=== PATIENT | female | born 1980 | race Caucasian/White ===

== ENCOUNTER 2016-11-17 07:30 | Emergency (ER) | payer OTHER ==
[2016-11-17 07:44] VITALS: BP 128/60
--- NOTE | 2016-11-17 10:08 | UC ---
Yousuf Grover Matthew, [facility] on 11/17/16 at 0930 . Back Pain HPI - HPI Summary HPI Summary: Nurse's Note: Left low back pain which began . Pain radiates down the posterior left knee which is constant. Patient aggravated by position change and standing. Denies burning on urination. Reports abdominal crmaping yesterday , followed by diarrhea. MD Note: Vital signs stable, afebrile, pulse ox 96%, 10/10 pain in the left lower back, occasional alcohol, non-smoker, fibromyalgia, chronic pain syndrome , hysterectomy, breast reduction, appendectomy. The patient is already on opioids last taken 11/10. UA shows negative for WBCs and nitrites. In Room Note: A 36 y/o female presents to [facility] with constant left lower back pain for the past 3 days. The pain is rated 10/10 in severity. The pain is worse with movement and lifting of the left leg. The pain is unaffected by twisting. Associated symptoms include an inability to sleep, fatigue, and peripheral edema. Seen by her PCP and prescribed hydrocodone for migraines. She' s also c/o of abdominal pain w/ diarrhea yesterday. FHx of diabetes and CAD - History of Current Complaint Chief Complaint: UCBackPain Stated Complaint: LT KIDNEY AREA PAIN Time Seen by Provider: 11/17/16 07:51 Hx Obtained From: Patient Hx Last Menstrual Period: 2011 Onset/Duration: Lasting Days, Still Present Timing: Constant Severity Initially: Moderate Severity Currently: Moderate Pain Intensity: 10 Pain Scale Used: 0-10 Numeric Back Pain: Is Discrete @ - left lower back Associated Signs And Symptoms: Positive: Other - Fatigue. Negative: Weakness, Numbness, Tingling - Allergies/Home Medications Allergies/Adverse Reactions: Allergies Allergy/AdvReac Type Severity Reaction Status Date / Time Latex Allergy Hives Verified 08/13/16 13:38 Nickel Allergy Rash Verified 08/13/16 13:38 Pineapple Allergy Unknown Verified 08/13/16 13:38 Reaction Details Tramadol Allergy Hives Verified 08/13/16 13:38 BEE STINGS Allergy Severe Anaphylatic Uncoded 08/13/16 13:38 Shock walnuts Allergy Unknown Uncoded 08/13/16 13:38 Reaction Details PMH/Surg Hx/FS Hx/Imm Hx Endocrine History Of: Denies: Diabetes, Thyroid Disease Cardiovascular History Of: Reports: Cardiac Disorders - rapid heart rate- no meds Denies: Hypertension, Pacemaker/ICD, Congestive Heart Failure Respiratory History Of: Denies: COPD, Asthma GI/ History Of: Reports: Gall Bladder Disease - acute symptoms sono reveals "sludge" Denies: Ulcer, Renal Disease Neurological History Of: Reports: Migraine - frequent Psychological History Of: Reports: Anxiety, Depression - Surgical History Surgical History: Yes Surgery Procedure, Year, and Place: hysterectomy, breast reduction, appendectomy - Family History Known Family History: Positive: Cardiac Disease, Hypertension - Social History Alcohol Use: Occasionally Substance Use Type: None Substance Use Comment - Amount & Last Used: hydrocodone for migraines 2 weeks ago. naproxen for fibromyalgia on sat nig Smoking Status (MU): Never Smoked Tobacco Have You Smoked in the Last Year: No - Immunization History Most Recent Influenza Vaccination: 06/2016 Review of Systems Constitutional: Fatigue, Other - Difficulty sleeping Skin: Negative Eyes: Negative ENT: Negative Respiratory: Negative Cardiovascular: Negative Gastrointestinal: Abdominal Pain, Diarrhea Motor: Negative Neurovascular: Negative Musculoskeletal: Edema - peripheral edema, Myalgia - left lower back pain Psychological: Negative All Other Systems Reviewed And Are Negative: Yes Physical Exam Triage Information Reviewed: Yes Appearance: No Pain Distress, Well-Nourished, Ill-Appearing Vital Signs: Initial Vital Signs Temp 97.5 F 11/17/16 07:37 Pulse 84 11/17/16 07:37 Resp 16 11/17/16 07:37 BP 128/60 11/17/16 07:37 Pulse Ox 96 11/17/16 07:37 Vital Signs Reviewed: Yes Eye Exam: Normal Eyes: Positive: Conjunctiva Clear ENT: Positive: Hearing grossly normal. Negative: Muffled/hoarse voice Neck: Positive: Supple, Nontender Respiratory: Positive: Chest non-tender, Lungs clear, Normal breath sounds, No respiratory distress Cardiovascular: Positive: RRR, No Murmur Abdomen Description: Positive: Nontender, Soft Bowel Sounds: Positive: Present Musculoskeletal: Positive: Other: - TENDERNESS LEFT LOWER BACK WITH PALPATION AND BENDING Neurological Exam: Normal Neurological: Positive: Alert Psychological Exam: Normal Psychological: Positive: Age Appropriate Behavior Skin Exam: Normal Skin: Negative: rashes Back Pain Course/Dx - Differential Dx/Diagnosis Differential Diagnosis/HQI/PQRI: Other - ruptured disc vs lower back strain Provider Diagnoses: Lumbar sprain Discharge - Discharge Plan Condition: Stable Disposition: HOME Patient Education Materials: Low Back Strain (ED) Referrals: Mary Gonzalez MD [Primary Care Provider] - Additional Instructions: WE DISCUSSED: You have strained the area of your left low back. I don't think this has to do with your urine or that you have pinched a nerve. Rest, warm moist heat in the morning; ice to area after standing. You can also alternate ice, heat, ice. Follow up at any time for increased pain or disability. The documentation as recorded by the Yousuf melo Matthew accurately reflects the service I personally performed and the decisions made by me, James Morel MD.
== END 2016-11-17 09:35 | disposition home or self-care (01) ==
LOC: UCEAST 07:30
DX: S39.012A Strain of muscle, fascia and tendon of lower back, initial encounter (principal); X58.XXXA Exposure to other specified factors, initial encounter
CPT/HCPCS: 81002; 99211; G0463

== ENCOUNTER 2017-02-27 08:44 | Emergency (ER) | payer SELFPAY ==
[2017-02-27 09:10] VITALS: BP 112/72
--- NOTE | 2017-02-27 09:51 | UC ---
Back Pain HPI - HPI Summary HPI Summary: Muscle strain to thoracic back after stretching and twisting quickly yesterday during a transfer with a resident - History of Current Complaint Chief Complaint: UCBackPain Stated Complaint: BACK INJURY Time Seen by Provider: 02/27/17 09:49 Hx Obtained From: Patient Hx Last Menstrual Period: 2011 ?: No Onset/Duration: Sudden Onset, Lasting Days - 1, Still Present Timing: Constant Severity Initially: Moderate Severity Currently: Moderate Pain Intensity: 7 Pain Scale Used: 0-10 Numeric Back Pain: Is Discrete @ Character: Aching, Spasmodic, Stiffness Aggravating: Movement, Lifting Alleviating: Rest, Position Associated Signs And Symptoms: Positive: Negative Related History: Occupational Injury - Allergies/Home Medications Allergies/Adverse Reactions: Allergies Allergy/AdvReac Type Severity Reaction Status Date / Time Latex Allergy Hives Verified 01/10/17 21:57 Nickel Allergy Rash Verified 01/10/17 21:57 Pineapple Allergy Hives Verified 02/27/17 08:52 Tramadol Allergy Hives Verified 01/10/17 21:57 BEE STINGS Allergy Severe Anaphylatic Uncoded 01/10/17 21:57 Shock walnuts Allergy Hives Uncoded 02/27/17 08:52 PMH/Surg Hx/FS Hx/Imm Hx Previously Healthy: No Neurological History: Migraine - Surgical History Surgical History: Yes Surgery Procedure, Year, and Place: hysterectomy, breast reduction, appendectomy - Family History Known Family History: Positive: Cardiac Disease, Hypertension Family History: MOM HAS DVT LIKELY DUE TO HOSPITALIZATION - Social History Occupation: Employed Full-time Lives: With Family Alcohol Use: Occasionally Substance Use Type: None Substance Use Comment - Amount & Last Used: hydrocodone for migraines 2 weeks ago. naproxen for fibromyalgia on sat nig Smoking Status (MU): Never Smoked Tobacco Have You Smoked in the Last Year: No - Immunization History Most Recent Influenza Vaccination: 06/2016 Review of Systems Constitutional: Negative Skin: Negative Eyes: Negative ENT: Negative Respiratory: Negative Cardiovascular: Negative Gastrointestinal: Negative Genitourinary: Negative Motor: Negative Neurovascular: Negative Musculoskeletal: Negative, Myalgia - thorasic back pain Neurological: Negative Psychological: Negative All Other Systems Reviewed And Are Negative: Yes Physical Exam Triage Information Reviewed: Yes Appearance: Well-Appearing, Pain Distress - mild, Obese Vital Signs: Initial Vital Signs Temp 98.1 F 02/27/17 08:57 Pulse 76 02/27/17 08:57 Resp 18 02/27/17 08:57 BP 112/72 02/27/17 08:57 Pulse Ox 97 02/27/17 08:57 Vital Signs Reviewed: Yes Eye Exam: Normal Eyes: Positive: Conjunctiva Clear ENT Exam: Normal ENT: Positive: Normal ENT inspection, Hearing grossly normal, Pharynx normal, TMs normal. Negative: Nasal congestion, Nasal drainage, Trismus, Muffled/ hoarse voice Dental Exam: Normal Neck exam: Normal Neck: Positive: Supple, Nontender, No Lymphadenopathy Respiratory Exam: Normal Respiratory: Positive: Chest non-tender, Lungs clear, Normal breath sounds, No respiratory distress, No accessory muscle use Cardiovascular Exam: Normal Cardiovascular: Positive: RRR, No Murmur, Pulses Normal, Brisk Capillary Refill Musculoskeletal Exam: Normal Musculoskeletal: Positive: Strength Intact, ROM Intact, No Edema Neurological Exam: Normal Neurological: Positive: Alert, Muscle Tone Normal Psychological Exam: Normal Skin Exam: Normal Back Pain Course/Dx - Course Course Of Treatment: heat, nsaids, flexeril, exercise, follow with PT and PCP - Differential Dx/Diagnosis Differential Diagnosis/HQI/PQRI: Fracture, Osteoporosis, Strain, Sprain Provider Diagnoses: MUscle strain thorasic spine Discharge - Discharge Plan Condition: Stable Disposition: HOME Prescriptions: Cyclobenzaprine TAB* [Flexeril 10 MG TAB*] 10 mg PO TID PRN #15 tab PRN Reason: Muscle spasm Naproxen Sodium [Naproxen Sodium 500 MG TAB] 500 mg PO BID PRN #30 tab PRN Reason: Pain Patient Education Materials: Muscle Spasm (ED), Core Strengthening Exercises ( GEN), Thoracic Back Strain (ED) Forms: *Work Release Referrals: Mary Gonzalez MD [Primary Care Provider] - 5 Days
== END 2017-02-27 10:15 | disposition home or self-care (01) ==
LOC: UCEAST 08:44
DX: S23.3XXA Sprain of ligaments of thoracic spine, initial encounter (principal); X50.1XXA Overexertion from prolonged static or awkward postures, initial encounter; Y93.F2 Activity, caregiving, lifting; Y92.239 Unspecified place in hospital as the place of occurrence of the external cause; Y99.0 Civilian activity done for income or pay; M79.7 Fibromyalgia
CPT/HCPCS: 99212; G0463

== ENCOUNTER 2017-03-10 08:52 | Emergency (ER) | payer OTHER ==
[2017-03-10 10:01] VITALS: BP 124/72
--- NOTE | 2017-03-10 10:32 | UC ---
Skin Complaint HPI - HPI Summary HPI Summary: Cold sx & red circular area that is starting to blister to left leg x1 week. Went to hike last weekend and not sure if exposed to tick. has had shingles ion the past and may feel a little like that. [ End ] - History of Current Complaint Chief Complaint: UCSkin Time Seen by Provider: 03/10/17 09:39 Stated Complaint: SKIN COMPLAINT Hx Obtained From: Patient Hx Last Menstrual Period: 2011 Onset/Duration: Gradual Onset Timing: Constant Onset Severity: Moderate Aggravating: Nothing Alleviating: Nothing Associated Signs & Symptoms: Negative: Red Streaks Related History: Insect Bite/Sting - ? - Allergy/Home Medications Allergies/Adverse Reactions: Allergies Allergy/AdvReac Type Severity Reaction Status Date / Time Latex Allergy Hives Verified 03/10/17 09:47 Nickel Allergy Rash Verified 03/10/17 09:47 Pineapple Allergy Hives Verified 03/10/17 09:47 Tramadol Allergy Hives Verified 03/10/17 09:47 BEE STINGS Allergy Severe Anaphylatic Uncoded 03/10/17 09:47 Shock walnuts Allergy Hives Uncoded 03/10/17 09:47 Home Medications: Home Medications diPHENhydraMINE PO* [Benadryl PO 25 MG TAB*] 25 mg PO ONCE PRN 03/10/17 [ History Confirmed 03/10/17] Review of Systems Constitutional: Negative Skin: Other - redness Eyes: Negative ENT: Negative Respiratory: Negative Cardiovascular: Negative Gastrointestinal: Negative Genitourinary: Negative Motor: Negative Neurovascular: Negative Musculoskeletal: Negative Neurological: Negative Psychological: Negative All Other Systems Reviewed And Are Negative: Yes PMH/Surg Hx/FS Hx/Imm Hx Previously Healthy: Yes - Surgical History Surgical History: Yes Surgery Procedure, Year, and Place: hysterectomy, breast reduction, appendectomy - Family History Known Family History: Positive: Cardiac Disease, Hypertension Family History: MOM HAS DVT LIKELY DUE TO HOSPITALIZATION - Social History Occupation: Employed Full-time Lives: With Family Alcohol Use: None Substance Use Type: None Substance Use Comment - Amount & Last Used: hydrocodone for migraines 2 weeks ago. naproxen for fibromyalgia on sat nig Smoking Status (MU): Never Smoked Tobacco Have You Smoked in the Last Year: No - Immunization History Most Recent Influenza Vaccination: 06/2016 Physical Exam Triage Information Reviewed: Yes Appearance: Well-Appearing, No Pain Distress, Well-Nourished Vital Signs: Initial Vital Signs Temp 97.4 F 03/10/17 09:48 Pulse 79 03/10/17 09:48 Resp 16 03/10/17 09:48 BP 124/72 03/10/17 09:48 Pulse Ox 98 03/10/17 09:48 Vital Signs Reviewed: Yes Eye Exam: Normal ENT Exam: Normal Dental Exam: Normal Neck exam: Normal Neck: Positive: 1 Respiratory Exam: Normal Cardiovascular Exam: Normal Musculoskeletal Exam: Normal Neurological Exam: Normal Psychological Exam: Normal Skin Exam: Normal Skin: Positive: Other - Left lateral leg just distal to the knee with red, macular erythema with no obvious bulls eye but with circular appearance about 2x3 cm. no induration or fluctuance. center with raised area with broken skin and about 1 cm over a raised area with vesicular appearance appears to be starting. no streaking. no discharge. neg homans . no popliteal involvement. Course/Dx - Course Course Of Treatment: With round reddened area that is spreading and with the hiking could have had tick / spider / insect bite so will treat with doxy at this time. with the history of previous shingles and the vesicular area starting will start valtrex at this time as it is benign med. patient aware and agrees and will also start probiotics. she will f/u with PCP for further eval soon and may consider Lyme testing since her child has it - Diagnoses Provider Diagnoses: cellulitis left leg Discharge - Discharge Plan Condition: Good Disposition: HOME Prescriptions: Doxycycline (Monohydrate) [Doxycycline Monohydrate] 100 mg PO BID #20 cap ValACYclovir (*) [Valtrex 1 GM(*)] 1 gm PO TID #21 tab Patient Education Materials: Cellulitis (ED) Referrals: Mary Gonzalez MD [Primary Care Provider] - 3 Days Additional Instructions: Please take the anti viral as well to prevent any potential worsening of the area if it is an early presentation of atypical shingles
== END 2017-03-10 11:07 | disposition home or self-care (01) ==
LOC: UCCORT 08:52
DX: L03.116 Cellulitis of left lower limb (principal)
CPT/HCPCS: 99212; G0463

== ENCOUNTER 2017-06-24 12:57 | Emergency (ER) | payer OTHER ==
[2017-06-24 13:18] VITALS: BP 131/60
--- NOTE | 2017-07-14 09:12 | UC ---
Frankie Grover Benjamin, scribed for Catherine Smith DO on 06/24/17 at 1334 . Abdominal Pain Female HPI - HPI Summary HPI Summary: 37yo female c/o stabbing RUQ pain that radiates to the right lower back for a few day. Pt also reports N/V today and had multiple episodes of diarrhea since yesterday. Pt feels hot, chilly, and diaphoretic. Pain is 9/10 and pt states feeling like passing out d/t pain. Also SOB d/t discomfort/pain. PMHx of fibromyalgia and hysterectomy. - History of Current Complaint Chief Complaint: UCAbdominalPain Stated Complaint: ABDOMINAL PAIN Hx Obtained From: Patient Hx Last Menstrual Period: hysterectomy ?: No Onset/Duration: Gradual Onset, Lasting Days, Still Present Timing: Constant Severity Initially: Severe Severity Currently: Severe Pain Intensity: 9 Pain Scale Used: 0-10 Numeric Location: Discrete At: RUQ Radiates: Yes Radiates to: Back - right lower back Character: Other - stabbing Aggravating Factor(s): Movement, Other: - pushing Alleviating Factor(s): Nothing Associated Signs and Symptoms: Positive: Diaphoresis, Back Pain, Nausea, Vomiting, Diarrhea Allergies/Adverse Reactions: Allergies Allergy/AdvReac Type Severity Reaction Status Date / Time Latex Allergy Hives Verified 06/24/17 14:30 Nickel Allergy Rash Verified 06/24/17 14:30 Pineapple Allergy Hives Verified 06/24/17 14:30 Tramadol Allergy Hives Verified 06/24/17 14:30 BEE STINGS Allergy Severe Anaphylatic Uncoded 06/24/17 14:30 Shock walnuts Allergy Hives Uncoded 06/24/17 14:30 Home Medications: Home Medications HYDROcodone/ACETAMIN 5-325 MG* [Jackson 5-325 TAB*] 1 tab PO Q4H PRN 06/24/17 [ History Confirmed 06/24/17] Naproxen [Naproxen EC 500 MG TAB] 500 mg PO 06/24/17 [History] PMH/Surg Hx/FS Hx/Imm Hx Previously Healthy: Yes - Surgical History Surgical History: Yes Surgery Procedure, Year, and Place: hysterectomy, breast reduction, appendectomy - Family History Known Family History: Positive: Cardiac Disease, Hypertension, Diabetes Family History: MOM HAD DVT LIKELY DUE TO HOSPITALIZATION - Social History Occupation: Employed Full-time Lives: With Family Alcohol Use: Occasionally Substance Use Type: None Substance Use Comment - Amount & Last Used: hydrocodone for migraines 2 weeks ago. naproxen for fibromyalgia on sat nig Smoking Status (MU): Never Smoked Tobacco Have You Smoked in the Last Year: No - Immunization History Most Recent Influenza Vaccination: 06/2016 Review of Systems Constitutional: Chills, Other - diaphoresis Skin: Negative Eyes: Negative ENT: Negative Respiratory: Shortness Of Breath Cardiovascular: Negative Gastrointestinal: Abdominal Pain, Vomiting, Diarrhea, Nausea Genitourinary: Negative Motor: Negative Neurovascular: Negative Musculoskeletal: Negative Neurological: Negative Psychological: Negative All Other Systems Reviewed And Are Negative: Yes Physical Exam Triage Information Reviewed: Yes Appearance: Well-Appearing, Well-Nourished, Pain Distress - moderate Vital Signs: Initial Vital Signs Temp 97.7 F 06/24/17 13:14 Pulse 88 06/24/17 13:14 Resp 20 06/24/17 13:14 BP 131/60 06/24/17 13:14 Pulse Ox 97 06/24/17 13:14 Eyes: Positive: Conjunctiva Clear. Negative: Discharge ENT: Positive: Normal ENT inspection, Hearing grossly normal. Negative: Muffled /hoarse voice Neck: Positive: Supple, Nontender Respiratory: Positive: Lungs clear, Normal breath sounds, No respiratory distress, No accessory muscle use Cardiovascular: Positive: RRR, No Murmur Abdomen Description: Positive: Soft. Negative: Nontender - RUQ and epigastric tenderness with palpatation Bowel Sounds: Positive: Hypoactive Musculoskeletal Exam: Normal Musculoskeletal: Positive: Strength Intact, ROM Intact Neurological: Positive: Alert, Muscle Tone Normal Psychological Exam: Normal Psychological: Positive: Age Appropriate Behavior Skin Exam: Normal Skin: Negative: rashes Abd Pain Female Course/Dx - Course Course Of Treatment: Reviewed pts list of medications and allergies. Blood pressure noted. - Differential Dx/Diagnosis Differential Diagnosis: Constipation, Gall Bladder Disease Provider Diagnoses: ruq pain, eleveate bp Discharge - Discharge Plan Condition: Stable Disposition: [facility] Referrals: Mary Gonzalez MD [Primary Care Provider] - The documentation as recorded by the Frankie melo Benjamin accurately reflects the service I personally performed and the decisions made by , Catherine Smith DO.
== END 2017-06-24 13:57 | disposition short-term general hospital (02) ==
LOC: UCEAST 12:57
DX: R10.11 Right upper quadrant pain (principal); R03.0 Elevated blood-pressure reading, without diagnosis of hypertension; R11.2 Nausea with vomiting, unspecified; R19.7 Diarrhea, unspecified; R61 Generalized hyperhidrosis; Z90.710 Acquired absence of both cervix and uterus; Z88.5 Allergy status to narcotic agent; Z91.030 Bee allergy status; Z91.040 Latex allergy status
CPT/HCPCS: 99213; G0463

== ENCOUNTER 2017-06-24 14:18 | Emergency (ER) | payer OTHER ==
--- NOTE | 2017-06-24 15:46 | RAD ---
INDICATION: ] Right upper quadrant pain COMPARISON: August 29, 2014 TECHNIQUE: An AP portable view obtained at 1520 hours is submitted. FINDINGS: Bones/Soft Tissues: There are no acute bony findings. Cardiomediastinal: The cardiomediastinal silhouette is normal. Lungs: There are no infiltrates. Pleura: There are no pleural effusions. Other: None IMPRESSION: NO ACTIVE DISEASE.
--- NOTE | 2017-06-24 15:56 | RAD ---
INDICATION: Right upper quadrant pain. COMPARISON: Comparison is made with a prior abdominal ultrasound from October 23, [address] of the abdomen and pelvis from October 31, 2015. TECHNIQUE: Multiple real-time images of the right upper quadrant were obtained. FINDINGS: The gallbladder appear normal. No gallbladder wall thickening or pericholecystic fluid is present. No intra or extrahepatic ductal distention is present. The common bile duct measured 0.5 cm in diameter. The liver is normal in size and increased in echogenicity suggestive of fatty infiltration. This would correlate with the prior CT study. No focal abnormality is seen. The pancreas is partially obscured by overlying bowel gas. The right kidney is normal in size without evidence for hydronephrosis. IMPRESSION: 1. NORMAL EXAMINATION OF THE GALLBLADDER. 2. FINDINGS SUGGESTIVE OF HEPATIC STEATOSIS.
[2017-06-24 16:05] LABS: Hematocrit 38 % (35-47); Mean Corpuscular HGB Conc 34 g/dl (31-36); Mean Corpuscular Hemoglobin 29 pg (27-31); Mean Corpuscular Volume 85 fL (80-97); Mean Platelet Volume 10 um3 (7.4-10.4); Red Cell Distribution Width 14 % (10.5-15); White Blood Count 9.9 10^3/ul (3.5-10.8)
[2017-06-24 16:18] LABS: ALT 16 U/L (7-52); AST 16 U/L (13-39); Alkaline Phosphatase 64 U/L (34-104); Anion Gap 4 mmol/L (2-11); BUN/Creatinine Ratio 16.9 (8-20); Blood Urea Nitrogen 11 mg/dL (6-24); C Reactive Protein 6.52 mg/L (< 5.00); CO2 Carbon Dioxide 26 mmol/L (22-32); Calcium 8.6 mg/dL (8.6-10.3); Chloride 106 mmol/L (101-111); EGFR African American 130.5 (>60); EGFR Non-African American 101.5 (>60); Globulin 2.6 g/dL (2-4); Glucose 94 mg/dL (70-100); Lipase 14 U/L (11.0-82.0); Potassium 3.6 mmol/L (3.5-5.0); Sodium 136 mmol/L (133-145); Total Protein 6.6 g/dL (6.4-8.9)
[2017-06-24 16:24] LABS: Urine Bilirubin Negative (Negative); Urine Glucose Negative (Negative); Urine Nitrite Negative (Negative)
--- NOTE | 2017-06-24 17:14 | ED ---
Jasbir Grover Thomas, scribed for Jacobo Riley MD on 06/24/17 at 1523 . Abdominal Pain/Female - HPI Summary HPI Summary: The pt is a 37 y/o F referred from [facility] with upper abd pain that was present when she woke up today at 07:00. The pain is present on both RUQ and LUQ but it is greater on the right. The pain radiates to her back. The pain was dull and achy when she woke. The pain decreased in severity by 08:00 but then gradually worsened. The pt rates the pain 04/01. The patient ate food at 11:00, which significantly worsened the pain. The pain is alleviated by nothing. The patient has treated the pain with nothing [employer]. Pt additionally c/o nausea, vomiting, diarrhea (onset two days ago), chills, cough, and leg pain. Pt denies fever and dysuria. PMHx: IBS, fibromyalgia. PSHx: appendectomy, hysterectomy. SHx: no smoking, no alcohol use. She is employed at [employer]. - History of Current Complaint Chief Complaint: EDAbdPain Stated Complaint: ABD PAIN Time Seen by Provider: 06/24/17 14:41 Hx Obtained From: Patient Hx Last Menstrual Period: hysterectomy Onset/Duration: Lasting Hours - onset today at 07:00, Still Present, Worse Since - 11:00 when she ate Timing: Constant Severity Currently: Severe Pain Intensity: 7 Pain Scale Used: 0-10 Numeric Location: Other - upper abd, worse on the right Radiates: Yes Radiates to: Back Character: Dull, Other: - Ache Aggravating Factor(s): Food Alleviating Factor(s): Nothing Associated Signs and Symptoms: Positive: Cough, Nausea, Vomiting, Diarrhea, Other: - Chills, leg pain; NEGATIVE: dysuria. Negative: Fever Allergies/Adverse Reactions: Allergies Allergy/AdvReac Type Severity Reaction Status Date / Time Latex Allergy Hives Verified 06/24/17 14:30 Nickel Allergy Rash Verified 06/24/17 14:30 Pineapple Allergy Hives Verified 06/24/17 14:30 Tramadol Allergy Hives Verified 06/24/17 14:30 BEE STINGS Allergy Severe Anaphylatic Uncoded 06/24/17 14:30 Shock walnuts Allergy Hives Uncoded 06/24/17 14:30 PMH/Surg Hx/FS Hx/Imm Hx Previously Healthy: No Endocrine/Hematology History: Reports: Other Endocrine/Hematological Disorders - Morbid obesity Denies: Hx Diabetes, Hx Sickle Cell Disease, Hx Thyroid Disease, Hx Unexplained Bleeding Comment Only: Hx Systemic Lupus Erythematosus - maybe per RN HX OF PATIENT Cardiovascular History: Denies: Hx Congestive Heart Failure, Hx Hypertension, Hx Pacemaker/ICD, Other Cardiovascular Problems/Disorders Respiratory History: Reports: Hx Sleep Apnea Denies: Hx Asthma, Hx Chronic Obstructive Pulmonary Disease (COPD) GI History: Reports: Hx Gall Bladder Disease - acute symptoms sono reveals "sludge" Denies: Hx Cirrhosis, Hx Ulcer, Other GI Disorders History: Denies: Hx Dialysis, Hx Renal Disease Musculoskeletal History: Reports: Hx Back Problems, Hx Fibromyalgia, Hx Orthopedic Injury - (right) foot fx 2001, Other Musculoskeletal History - left lower arm ligament pulled Denies: Hx Rheumatoid Arthritis Sensory History: Reports: Hx Contacts or Glasses Denies: Hx Hearing Aid Opthamlomology History: Reports: Hx Contacts or Glasses Neurological History: Reports: Hx Migraine - frequent Psychiatric History: Reports: Hx Anxiety, Hx Depression Denies: Hx Panic Disorder - Cancer History Hx Chemotherapy: No - Surgical History Surgery Procedure, Year, and Place: hysterectomy, breast reduction, appendectomy Infectious Disease History: No Infectious Disease History: Reports: Hx Shingles - summer 2011 Denies: Hx Clostridium Difficile, Hx Hepatitis, Hx Human Immunodeficiency Virus (HIV), Hx of Known/Suspected MRSA, Hx Tuberculosis, History Other Infectious Disease, Traveled Outside the [place] in Last 30 Days - Family History Known Family History: Positive: Cardiac Disease, Hypertension Family History: MOM HAS DVT LIKELY DUE TO HOSPITALIZATION - Social History Alcohol Use: Occasionally Substance Use Type: Reports: None Substance Use Comment - Amount & Last Used: hydrocodone for migraines 2 weeks ago. naproxen for fibromyalgia on sat nig Smoking Status (MU): Never Smoked Tobacco Have You Smoked in the Last Year: No Review of Systems Positive: Chills. Negative: Fever Positive: Cough Positive: Abdominal Pain - upper (R>L), ache/dull, worse with food, Vomiting, Diarrhea, Nausea Positive: Other - Leg pain All Other Systems Reviewed And Are Negative: Yes Physical Exam Triage Information Reviewed: Yes Vital Signs On Initial Exam: Initial Vitals BP 133/72 06/24/17 14:26 Vital Signs Reviewed: Yes Appearance: Positive: Well-Appearing, No Pain Distress Head/Face: Positive: Normal Head/Face Inspection ENT: Positive: Normal ENT inspection, Hearing grossly normal, Pharynx normal Neck: Positive: Supple, Nontender Respiratory/Lung Sounds: Positive: Clear to Auscultation, Breath Sounds Present Cardiovascular: Positive: RRR. Negative: Murmur Abdomen Description: Positive: Nontender Musculoskeletal: Positive: Strength/ROM Intact Neurological: Positive: Sensory/Motor Intact, Alert, Oriented to Person Place, Time, CN Intact II-III Psychiatric: Positive: Normal - Dae Coma Scale Best Eye Response: 4 - Spontaneous Best Motor Response: 6 - Obeys Commands Best Verbal Response: 5 - Oriented Coma Scale Total: 15 Diagnostics - Vital Signs Vital Signs Temp Pulse Resp BP Pulse Ox 06/24/17 14:28 83 97 06/24/17 14:27 97.9 F 80 18 133/72 97 06/24/17 14:26 133/72 - Laboratory Result Diagrams: 06/24/17 15:50 06/24/17 15:50 Lab Statement: Any lab studies that have been ordered have been reviewed, and results considered in the medical decision making process. - Radiology CXR Xray Interpretation: No Acute Changes - CXR shows no active disease. ED physician has reviewed this radiology report and agrees. Radiology Interpretation Completed By: Radiologist - EKG 15:28 Cardiac Rate: NL - 84 BPM EKG Interpretation: No STEMI. - Additional Comments Diagnostic Additional Comments: US Gallbladder. Interpreted by radiologist. impression: 1. NORMAL EXAMINATION OF THE GALLBLADDER. 2. FINDINGS SUGGESTIVE OF HEPATIC STEATOSIS. ED physician has reviewed this radiology report and agrees. Re-Evaluation - Re-Evaluation First Eval Re-Evaluation Time: 17:13 Change: Improved Comment: thE patient is comfortable. She states she had diarrhea on Saturday and Saturday. She feels she has a "stomach bug". She can hold down clear liquids and would like to go home. out of work 2 days. Abdominal Pain Fem Course/Dx - Course Course Of Treatment: The pt is a 37 y/o F with dull/achy upper abd pain R>L that radiates to her back and is worsened with food as well as N/V/D. Bloodwork shows. UA shows. EKG reveals no STEMI. CXR shows no active disease. US Gallbladder shows 1. NORMAL EXAMINATION OF THE GALLBLADDER. 2. FINDINGS SUGGESTIVE OF HEPATIC STEATOSIS. ED physician has reviewed these radiology reports and agrees. - Diagnoses Provider Diagnoses: Gastroenteritis Discharge - Discharge Plan Condition: Good Disposition: HOME Patient Education Materials: Gastroenteritis (ED), Abdominal Pain (ED) Forms: *Work Release Referrals: Mary Gonzalez MD [Primary Care Provider] - The documentation as recorded by the Jasbir melo Thomas accurately reflects the service I personally performed and the decisions made by , Jacobo Riley MD.
[2017-06-24 17:15] VITALS: BP 122/70
== END 2017-06-24 17:21 | disposition home or self-care (01) ==
LOC: ED 14:18
DX: K52.9 Noninfective gastroenteritis and colitis, unspecified (principal); K58.9 Irritable bowel syndrome, unspecified; M79.7 Fibromyalgia; E66.01 Morbid (severe) obesity due to excess calories
CPT/HCPCS: 36415; 71010; 76705; 80053; 81003; 83605; 83690; 84484; 84702; 85025; 86140; 93005; 99282

== ENCOUNTER 2017-09-17 06:26 | Day surgery (SDC) | payer OTHER ==
[~2017-09-17 06:26] MED LIST: Buffered Lidocaine 0.9% SYRIN* 5 ML/SYR SYRINGE INTRADERM ONE; Dexamethasone IV* 4 MG/ML 1 ML (4 MG) IV SLOW PU ONE; Famotidine IV* 10 MG/ML 2 ML (20 mg) IV ONE
[2017-09-17] MEDS ORDERED: Famotidine IV* 10 MG/ML 2 ML (20 mg) ONE (06:30)
[2017-09-17] MEDS ORDERED: Dexamethasone IV* 4 MG/ML 1 ML (4 MG) ONE (06:30)
[2017-09-17] MEDS ORDERED: ceFAZolin 2 GM PREMIX (*) 2 GM/50 ML BAG IVPB ONE (06:35)
[2017-09-17] MEDS ORDERED: Lidocaine 1% INJ* 10 MG/ML 30 ML SDV ONE (07:24)
[2017-09-17] MEDS ORDERED: fentaNYL* 50 MCG/ML 2 ML VIAL (100 MCG VIAL) ONE ×2 (07:26→07:45)
[2017-09-17] MEDS ORDERED: Midazolam* 1 MG/ML 2 ML VIAL (2 MG) ONE ×2 (07:26→07:58)
[2017-09-17] MEDS ORDERED: Lidocaine 2% PF * 5 ML VIAL ONE (07:46)
[2017-09-17] MEDS ORDERED: Propofol* 10 MG/ML 20 ML BTL IV PUSH ONE ×2 (07:46→08:12)
[2017-09-17] MEDS ORDERED: Ondansetron INJ* 2 MG/ML VIAL ONE (08:27)
[2017-09-17] MEDS ORDERED: HYDROcodone/ACETAMIN 5-325 MG* 1 TAB PO PRN (09:01)
[2017-09-17] MEDS ORDERED: Ketorolac INJ* 30 MG/ML 1 ML VIAL IV PRN (09:01)
[2017-09-17] MEDS ORDERED: PROCHLORPERAZINE INJ 5 MG/ML 2 ML VIAL IV PRN (09:01)
[2017-09-17] MEDS ORDERED: fentaNYL* 50 MCG/ML 2 ML VIAL (100 MCG VIAL) IV PRN (09:01)
[2017-09-17] MEDS ORDERED: oxyCODONE/Acetamin 5/325 MG* TAB PO PRN (09:01)
[2017-09-17] MEDS ORDERED: HYDROcodone/ACETAMIN 5-325 MG* 1 TAB ONE (09:14)
[2017-09-17] MEDS ORDERED: Ketorolac INJ* 30 MG/ML 1 ML VIAL ONE (09:14)
[2017-09-17 09:25] VITALS: BP 108/80
--- NOTE | 2017-09-17 20:27 | OP ---
DATE OF OPERATION: 09/17/17 - [facility] DATE OF : 76 SURGEON: Cris Madison MD FUR BUYER: TAMANNA Umana ANESTHESIOLOGIST: Dave Rogel MD ANESTHESIA: Local MAC. PRE-OP DIAGNOSES: Ulnar nerve compression at the left elbow and left carpal tunnel syndrome. POST-OP DIAGNOSES: Ulnar nerve compression at the left elbow and left carpal tunnel syndrome. OPERATIVE PROCEDURE: Left carpal tunnel release and ulnar nerve decompression at the left elbow. INDICATIONS: Shaneka is a 37-year-old female with numbness and tingling in her left hand. Nerve conduction studies are consistent with ulnar nerve compression at the elbow and median nerve compression at the wrist. She presents for ulnar nerve decompression at the elbow and left carpal tunnel release. ESTIMATED BLOOD LOSS: Zero. TOURNIQUET TIME: About 35 minutes. DESCRIPTION OF PROCEDURE: The patient was brought to the operating room, was given a sedation anesthetic and a local infiltration of 10 cc of 1% plain lidocaine on the medial aspect of the left elbow and 10 cc of 1% plain lidocaine in the palm of the left hand. The skin of her left upper extremity was prepped and draped in the usual sterile fashion. The upper extremity was exsanguinated and the tourniquet elevated to 250 mmHg. A curvilinear incision was made centered between the medial epicondyle and the tip of the olecranon process. We dissected bluntly through the subcutaneous tissue. The branch of the medial and antebrachial cutaneous nerve was preserved, the ulnar nerve was located in the cubital tunnel, was carefully dissected out proximally and distally. The main portion of compression seemed to be at the Malave's ligament. The FCU fascia was divided and the nerve was then well decompressed. The wound was copiously irrigated with saline. The medial intermuscular septum was divided and then the subcutaneous tissue closed with 2-0 Polysorb suture, the skin was closed with skin rigoberto. Next, a longitudinal incision was made in the palm in line with the ring finger. We dissected sharply through the subcutaneous tissue, down to the transverse carpal ligament. The ligament was divided sharply with a knife and then more proximally with the scissors. The nerve was dissected free from the surrounding tissue and there was an area of moderate compression of the mid portion of the ligament. The wound was irrigated and the skin edges were reapproximated with 4-0 nylon suture. The wounds were dressed with Xeroform, 4x4, Webril, and Jose wrap. The patient tolerated the procedure well and was brought to the recovery room in good condition. [id number]/[facility] #: [id number] [facility], [place]
== END 2017-09-17 09:41 | disposition home or self-care (01) ==
LOC: OREAST 06:26
PROVIDERS: ATTEND Orthopaedic Surgery
DX: G56.02 Carpal tunnel syndrome, left upper limb (principal); G56.22 Lesion of ulnar nerve, left upper limb; K21.9 Gastro-esophageal reflux disease without esophagitis; M79.7 Fibromyalgia; F41.8 Other specified anxiety disorders; G89.4 Chronic pain syndrome
CPT/HCPCS: J0690; J1100; J1885; J2250; J2405; J2704; J3010

== ENCOUNTER 2018-05-01 20:23 | Emergency (ER) | payer OTHER ==
[2018-05-01 20:31] VITALS: BP 149/83
--- NOTE | 2018-05-01 21:06 | UC ---
Throat Pain/Nasal Shady HPI - HPI Summary HPI Summary: 38 y/o female presents to the urgent care c/o of sinus congestion w/ clear nasal discharge since this morning. Pt reports left ear pain for the past 3 days. left ear pain worsen today w/ sinus congestion and pressure and GARCIA. Pain is 6/10. She also has sore throat w/ hoarseness. Pt has taken Naproxen PO to alleviate pain, Last dose taking was at 1900pm. Pt denies fever, cough, chest pain, dizziness, chest pain, abdominal pain, N/V/D. - History of Current Complaint Chief Complaint: UCGeneralIllness Stated Complaint: SINUS CONGESTION, AND SORE THROAT Time Seen by Provider: 05/01/18 21:01 Hx Obtained From: Patient Hx Last Menstrual Period: hysterectomy ?: No Onset/Duration: Gradual Onset, Lasting Days - 3 days, Still Present, Worse Since - today Severity: Severe Pain Intensity: 6 - left ear pain Pain Scale Used: 0-10 Numeric Cough: None Associated Signs & Symptoms: Positive: Hoarseness, Sinus Discomfort, Nasal Discharge, Other - sore throat. Negative: Fever - Epiglottits Risk Factors Epiglottis Risk Factors: Negative - Allergies/Home Medications Allergies/Adverse Reactions: Allergies Allergy/AdvReac Type Severity Reaction Status Date / Time latex Allergy Intermediate hives Verified 05/01/18 20:33 swelling tramadol Allergy Intermediate hives, Verified 05/01/18 20:33 swelling nickel Allergy Rash Verified 05/01/18 20:33 pineapple Allergy Hives Verified 05/01/18 20:33 BEE STINGS Allergy Severe Anaphylatic Uncoded 09/17/17 06:46 Shock walnuts Allergy Hives Uncoded 09/17/17 06:46 Home Medications: Home Medications Minocycline HCl 100 mg PO DAILY WITH MEAL 05/01/18 [History Confirmed 05/01/18] Pregabalin CAP(*) [Lyrica CAP(*)] 25 mg PO DAILY WITH MEAL 05/01/18 [History Confirmed 05/01/18] PMH/Surg Hx/FS Hx/Imm Hx Previously Healthy: Yes Other Endocrine History: Fibromyalgia - Surgical History Surgical History: Yes Surgery Procedure, Year, and Place: hysterectomy 2011 [place]. [place] [facility] [place] [facility] [place] - Family History Known Family History: Positive: Cardiac Disease, Hypertension Family History: MOM HAS DVT LIKELY DUE TO HOSPITALIZATION - Social History Occupation: Employed Full-time Lives: With Family Alcohol Use: Occasionally Substance Use Type: Prescribed Substance Use Comment - Amount & Last Used: prn pain meds Smoking Status (MU): Never Smoked Tobacco Have You Smoked in the Last Year: No - Immunization History Most Recent Influenza Vaccination: 06/2016 Review of Systems Constitutional: Negative Skin: Negative Eyes: Negative ENT: Sore Throat, Ear Ache - left ear, Nasal Discharge - clear, Sinus Congestion , Sinus Pain/Tenderness Respiratory: Negative Cardiovascular: Negative Gastrointestinal: Negative Genitourinary: Negative Motor: Negative Neurovascular: Negative Musculoskeletal: Negative Neurological: Headache Psychological: Negative Is Patient Immunocompromised?: No All Other Systems Reviewed And Are Negative: Yes Physical Exam - Summary Physical Exam Summary: Vitals: reviewed General: Well developed, well-nourished obese female patient with NAD. Head and face: Normocephalic and atraumatic, Positive tenderness over the frontal and maxillary sinuses.. Eyes: PERRLA, EOMI x 2. Normal conjunctiva. No eye discharge. ENT: left external ear canl clear, LF TM injected w/ erythema and midl yellowish drainage. R external ear canal clear and RT TM with normal limits. Nose: edematous and erythematous nasal mucosa with with clear discharge and erythematous mucosa. Pharynx with mild erythema, no exudate. +PND clear Neck: Supple, no JVD, no carotid bruits and no lymphadenopathy. Lungs: clear, no rales, no rhonchi, no wheezes. CVS: RRR, S1 and S2 present no murmurs or gallops appreciated. Abdomen: soft nontender with positive bowel sounds. Extremities: no edema noted. Neuro: WNL. Skin: warm and dry Triage Information Reviewed: Yes Vital Signs: Initial Vital Signs Temp 98.1 F 05/01/18 20:28 Pulse 95 05/01/18 20:28 Resp 22 05/01/18 20:28 BP 149/83 05/01/18 20:28 Pulse Ox 98 05/01/18 20:28 Throat Pain/Nasal Course/Dx - Course Course Of Treatment: 38 y/o female presents to the urgent care c/o of sinus congestion w/ clear nasal discharge since this morning. Pt reports left ear pain for the past 3 days. left ear pain worsen today w/ sinus congestion and pressure and GARCIA. Pain is 6/10. She also has sore throat w/ hoarseness. Pt has taken Naproxen PO to alleviate pain, Last dose taking was at 1900pm. Pt denies cough, chest pain, dizziness, chest pain, abdominal pain, N/V/D. Hx obtained. Pt w/ left ear otitis media and Acute rhinosinusitis on examination. Pt Rx Amoxicillin PO. First dose given at the clinic tonight. Also Rx flonase and Loratadine PO to alleviate symptoms. Advised to increase fluid intake, rest and eat well. Continue taking Naproxen for pain for sinus pain or headache. Pt 's BP is elevated today advised to decrease salt in diet, monitor BP and f/u with PCP for further management. Pt explained D/C instructions. Pt understood and agreed with plan of care. - Differential Dx/Diagnosis Differential Diagnosis/HQI/PQRI: Mononucleosis, Otitis Media, Pharyngitis, Sinusitis, Tonsillitis, URI Provider Diagnoses: 1- Acute rhinosinusitis. 2- Left otitis Media. 3-Elevated BP w/ Hx of HTN Discharge - Sign-Out/Discharge Documenting (check all that apply): Patient Departure - D/C home - Discharge Plan Condition: Stable Disposition: HOME Prescriptions: Amoxicillin PO (*) [Amoxicillin 875 MG (*)] 875 mg PO BID #19 tab Fluticasone NASAL SPRAY 50MCG* [Flonase NASAL SPRAY 50MCG*] 2 spray BOTH NARES DAILY #1 btl Loratadine/Pseudoephedrine [Loratadine-D 12 Hour Tablet] 1 each PO BID #30 tab.er.12h Patient Education Materials: Sinusitis (ED), Ear Infection (ED), Low-Sodium Diet (ED) Referrals: Mary Gonzalez MD [Primary Care Provider] - 1 Week Additional Instructions: 1- Please increase fluid intake and rest. take full course of antibiotic to avoid resistance. Stop taking Minocycline PO until symptoms of ear infection resolve. 2-Use Flonase as directed to help drain fluid. Also buy saline drops to clear sinuses 3-Take Loratadine PO to alleviates sinus congestion 4-Return to the clinic or PCP if symptoms do not improve for further management and treatment 5-Your BP is elevated today. please decrease salt in your diet, monitor BP and if it continues to be elevated please f/u with your PCP for further management - Billing Disposition and Condition Condition: STABLE Disposition: Home
[2018-05-01] MEDS ORDERED: Amoxicillin PO (*) 500 MG CAP PO ONE (21:20)
== END 2018-05-01 21:25 | disposition home or self-care (01) ==
LOC: UCEAST 20:23
DX: J01.90 Acute sinusitis, unspecified (principal); H66.92 Otitis media, unspecified, left ear; R03.0 Elevated blood-pressure reading, without diagnosis of hypertension; Z88.1 Allergy status to other antibiotic agents; Z88.6 Allergy status to analgesic agent
CPT/HCPCS: 87651; 99202; A9270-GY; G0463